=== PATIENT | male | born 2000 | race Two or more races ===

== ENCOUNTER → 2024-07-31 | Outpatient (CLI) | payer OTHER, SELFPAY ==
[2024-07-31 12:35] LABS: Lactate (Lactic Acid) 0.8 mMol/L (0.4-2.0)
[2024-07-31 13:08] LABS: Sed Rate (ESR) 50 mm/hr (0-15)
[2024-07-31 13:30] LABS: C-Reactive Protein 7.1 mg/dL (0.0-0.9)
== END | disposition home or self-care (01) ==
LOC: SLDO 12:25
PROVIDERS: PCP General Practice; Referring Provider General Practice; Visit Provider General Practice
DX: J18.9 Pneumonia, unspecified organism (principal)
CPT/HCPCS: 36415; 83605; 85652; 86140

== ENCOUNTER → 2024-08-02 | Outpatient (CLI) | payer MEDICAID, SELFPAY ==
--- NOTE | 2024-08-02 | XR_ITS ---
Examination: CT chest with intravenous contrast CT chest without intravenous contrast 2-D reconstructions Date and time of exam:August 02, 2024 at 0909 hours INDICATIONS: Smoking history 50 years congestion coughing 2 months CTDI:vol (mGy) 35.3 DLP: (mGycm) 1403 Technique: Multiple axial sections of the thorax have been obtained. 3 mm slice thickness, from the hemidiaphragms to above the apices of the lungs. Mediastinal and lung density settings have been obtained. Intravenous contrast administered 60 cc [id number]. Noncontrast images have also been obtained. 2-D sagittal coronal images obtained. Low dose protocols were performed. One or more of the following dose reduction techniques were used; automated exposure control, adjustment of the mA and/or KV according to patient size, use of iterative reconstruction technique. Findings: 3 mm right thyroid nodule No thoracic lytic aneurysm dilatation Pulmonary artery opacification is reduced No mediastinal lymphadenopathy Soft nodular opacities in the right lung with pneumonic infiltrate in the right upper lobe and right base No pleural fluid No visualized liver or splenic lesion IMPRESSION: Significant right lung nodular pneumonia, follow-up chest imaging is needed to document clearing
== END | disposition home or self-care (01) ==
PROVIDERS: PCP General Practice; Referring Provider General Practice; Visit Provider General Practice
DX: J18.9 Pneumonia, unspecified organism (principal)
CPT/HCPCS: 71270; A4649; Q9967